=== PATIENT | female | born 1950 | race American Indian/Alaskan Native ===

== ENCOUNTER 2021-03-15 17:26 | Emergency (ER) | payer SELFPAY ==
[2021-03-15] MEDS ORDERED: hydrALAZINE 20 MG/1 ML INJ IV ONE (19:41)
[2021-03-15] MEDS ORDERED: ASPIRIN 325 MG TAB PO ONE (19:41)
--- NOTE | 2021-03-15 20:13 | XRay Report ---
XR chest routine 2V INDICATION / CLINICAL INFORMATION: chest pain. COMPARISON: None available. FINDINGS: SUPPORT DEVICES: None. HEART /PULMONARY VASCULATURE: No significant abnormality. LUNGS / PLEURA: No significant pulmonary or pleural abnormality. No pneumothorax. ADDITIONAL FINDINGS: No significant additional findings. IMPRESSION: 1. No acute findings. Signer Name: David Ho MD Signed: 03/15/2021 8:09 PM Workstation Name: [id number]
[2021-03-15] MEDS ORDERED: cloNIDine 0.2 MG TAB PO ONE (20:48)
[2021-03-15 20:53] LABS: Basophils # (Auto) 0.1 K/mm3 (0.0-0.1); Basophils % (Auto) 1.7 % (0.0-1.8); Eosinophils # (Auto) 0.2 K/mm3 (0.0-0.4); Hematocrit 41.7 % (30.3-42.9); Hemoglobin 13.7 gm/dl (10.1-14.3); Lymphocytes # (Auto) 3.4 K/mm3 (1.2-5.4); Lymphocytes % (Auto) 40.1 % (13.4-35.0); Mean Corpuscular HGB Conc 33 % (30-34); Mean Corpuscular Volume 86 fl (79-97); Monocytes # (Auto) 0.3 K/mm3 (0.0-0.8); Platelet Count 235 K/mm3 (140-440); Red Blood Count 4.85 M/mm3 (3.65-5.03); Red Cell Distribution Width 14.2 % (13.2-15.2)
[2021-03-15 21:02] LABS: Alanine Aminotransferase 14 units/L (7-56); Albumin 3.9 g/dL (3.9-5); BUN/Creatinine Ratio 19; Blood Urea Nitrogen 15 mg/dL (7-17); Calcium 10.5 mg/dL (8.4-10.2); Hemolysis Index 8
--- NOTE | 2021-03-15 21:56 | Emergency Department Report ---
ED General Adult HPI - General Chief complaint: Pain General Stated complaint: HYPERTENSION Time Seen by Provider: 03/15/21 20:40 Source: patient Mode of arrival: Ambulatory Limitations: No Limitations - History of Present Illness Initial comments: 70-year-old female, history of hypertension, presents to ED with elevated blood pressure. Patient is visiting her daughter here in [place]. Patient lives in [place]. She states she forgot her medication at home in [place]. Patient has been out of her medicine x5 days. Patient states she normally takes telmisartan 80 mg. Patient denies any headache, chest pain, dizziness, nausea or vomiting. -: days(s) (5) Quality: other (Painless) Consistency: constant Improves with: medication Worsens with: none Associated Symptoms: denies: chest pain, diaphoresis, headaches, nausea/vomiting, shortness of breath, syncope - Related Data Previous Rx's Medication Instructions Recorded Last Taken Type Telmisartan [Micardis] 80 mg PO QDAY #30 tablet 03/15/21 Unknown Rx Allergies Allergy/AdvReac Type Severity Reaction Status Date / Time No Known Allergies Allergy Verified 03/15/21 17:33 ED Review of Systems ROS: Stated complaint: HYPERTENSION Other details as noted in HPI Comment: All other systems reviewed and negative Respiratory: denies: shortness of breath Cardiovascular: denies: chest pain Gastrointestinal: denies: nausea, vomiting Neurological: denies: headache, weakness, numbness, vertigo ED Past Medical Hx - Past Medical History Previous Medical History?: No - Surgical History Past Surgical History?: No - Medications Home Medications: Home Medications Medication Instructions Recorded Confirmed Last Taken Type Telmisartan [Micardis] 80 mg PO QDAY #30 tablet 03/15/21 Unknown Rx ED Physical Exam - General Limitations: No Limitations General appearance: alert, in no apparent distress - Head Head exam: Present: atraumatic, normocephalic - ENT ENT exam: Present: mucous membranes moist - Neck Neck exam: Present: normal inspection - Respiratory Respiratory exam: Present: normal lung sounds bilaterally. Absent: respiratory distress - Cardiovascular Cardiovascular Exam: Present: regular rate, normal rhythm - GI/Abdominal GI/Abdominal exam: Present: soft. Absent: distended, tenderness - Extremities Exam Extremities exam: Present: normal inspection - Neurological Exam Neurological exam: Present: alert, oriented X3 - Psychiatric Psychiatric exam: Present: normal affect, normal mood - Skin Skin exam: Present: warm, dry, intact, normal color ED Course Vital Signs 03/15/21 03/15/21 03/15/21 17:33 19:44 20:35 Temperature 98 F Pulse Rate 102 H Respiratory 16 Rate Blood Pressure 237/143 Blood Pressure 160/103 266/159 [Left] O2 Sat by Pulse 98 95 Oximetry 03/15/21 03/15/21 03/15/21 20:45 20:58 20:59 Temperature Pulse Rate 93 H 93 H 91 H Respiratory 16 Rate Blood Pressure 232/143 232/143 250/167 Blood Pressure [Left] O2 Sat by Pulse 97 Oximetry 03/15/21 03/15/21 03/15/21 21:01 21:15 21:31 Temperature Pulse Rate 80 76 78 Respiratory 17 16 16 Rate Blood Pressure 250/167 237/143 229/136 Blood Pressure [Left] O2 Sat by Pulse 95 95 95 Oximetry 03/15/21 03/15/21 21:45 22:01 Temperature Pulse Rate 84 69 Respiratory 11 L 18 Rate Blood Pressure 250/167 185/119 Blood Pressure [Left] O2 Sat by Pulse 99 98 Oximetry ED Medical Decision Making - Lab Data Result diagrams: 03/15/21 20:29 03/15/21 20:29 - Medical Decision Making 70-year-old female presents to ED with asymptomatic hypertension. Patient has been off her BP meds x5 days. Patient given clonidine here in the ED with improvement of her blood pressure. Patient given a prescription for her usual telmisartan 80 mg. Outpatient follow-up advised, return precautions given. Critical care attestation.: If time is entered above; I have spent that time in minutes in the direct care of this critically ill patient, excluding procedure time. ED Disposition Clinical Impression: Uncontrolled hypertension Disposition: 01 HOME / SELF CARE / HOMELESS Is pt being admited?: No Condition: Stable Instructions: Managing Your Hypertension, Hypertension (ED) Prescriptions: Telmisartan [Micardis] 80 mg PO QDAY #30 tablet Referrals: MEILTA QUINONEZ MD [Primary Care Provider] - 3-5 Days [facility] [Provider Group] - 3-5 Days DEYSI ADAM MD [Staff Physician] - 3-5 Days Time of Disposition: 22:21
[2021-03-16 01:34] VITALS: BP 136/99
== END 2021-03-15 22:30 | disposition home or self-care (01) ==
LOC: ED 17:26
DX: I10 Essential (primary) hypertension (principal); Z79.899 Other long term (current) drug therapy
CPT/HCPCS: 36415; 71046; 80053; 85025; 99284; J0360